=== PATIENT | male | born 1960 | race Caucasian/White ===

== ENCOUNTER → 2016-04-06 | Outpatient (CLI) | payer OTHER ==
[~2016-04-06] MED LIST: DOCU100C31 PO; DRGTP12 TOP; FENT75DI2 TD; GABA800T PO; MAGIC1 PO; MRLP17X PO; NRN600 PO; ONDA4TAB10 SL; OPTIRAY 320 IV PRN; OXYC-57 PO
--- NOTE | 2016-04-06 15:09 | DIAGNOSTIC IMAGING REPORT ---
CHEST CT WITH CONTRAST CT DOSE: 523.11 mGy.cm HISTORY: Lung carcinoma LUNG Cancer, r UPPER LOBE C7A.090 TECHNIQUE: Multiaxial CT images of the chest were performed following the intravenous administration of contrast. COMPARISON: 12/19/2015 FINDINGS: Interval decrease in point of a right apical cystic and or necrotic process. Slightly complex soft tissue component over the right pulmonary apex persists. An associated medial soft tissue component is perhaps slightly diminished. Bony destructive changes of the upper right hemithorax produces described are stable. No significant mediastinal or hilar adenopathy. Interval development of a 1 cm pleural-based nodule peripheral aspect lower right lung best seen on image 56. Possible sessile pleural-based nodule anterior aspect right base image 61 measuring 5 x 3 mm at. Left lung is considered clear. Apical fibrotic changes in the left are considered stable. Stable postoperative changes to low cervical spine. IMPRESSION: 1. Interval reduction in volume of a complex density over the right pulmonary apex. 2. Estimated volume is diminished by approximately 50%. 3. destructive changes of several osseous structures of the right pulmonary apical region, unchanged from the prior study. 4. Interval development of 2 pleural-based densities peripheral aspect right mid and lower lung regions the possibility of developing metastatic change. 5 hepatic hypodensities unchanged. Electronically signed by: Simon Best M.D. 04/06/2016 3:07 PM Dictated Date/Time: 04/06/2016 2:55 PM
--- NOTE | 2016-04-06 19:32 | DIAGNOSTIC IMAGING REPORT ---
CT OF THE ABDOMEN AND PELVIS WITH CONTRAST CLINICAL HISTORY: Right upper lobe lung cancer. COMPARISON STUDY: PET/CT September 16, 2015. TECHNIQUE: Following IV administration of 118 mL of Optiray-320, axial images of the abdomen and pelvis were obtained from the lung bases to the proximal femurs. Images were reviewed in the axial, sagittal, and coronal planes. IV contrast was administered without complication. FINDINGS: The chest will be reported separately. Note is made of a 1.8 cm hypodense lesion with possible peripheral enhancement within the right lower lateral hemithorax. There may be associated erosion of the adjacent rib. A 1.1 cm right lower lobe subpleural nodule is noted on image 36 of 446. Subcentimeter hepatic lesions are unchanged. These likely reflect cysts. No new hepatic lesions are present. The spleen, adrenal glands, kidneys and pancreas are unremarkable. There is no evidence for a bowel obstruction. There is mild bladder wall thickening. No abdominal or pelvic lymphadenopathy is present. There are no suspicious osseous lesions. IMPRESSION: 1. 1.8 cm hypodense lesion with peripheral enhancement within the right lower hemithorax with suspected associated minimal rib erosion. This finding, in addition to a few additional pleural nodules, are worrisome for pleural spread of malignancy. 2. No evidence of metastatic disease within the abdomen or pelvis. Electronically signed by: Noah Carrillo M.D. 04/06/2016 7:30 PM Dictated Date/Time: 04/06/2016 2:56 PM
== END | disposition home or self-care (01) ==
LOC: C.CTS 14:25
PROVIDERS: ATTEND Internal Medicine Hematology & Oncology
DX: C7A.090 Malignant carcinoid tumor of the bronchus and lung (principal); K76.9 Liver disease, unspecified

== ENCOUNTER → 2016-05-03 | Outpatient (CLI) | payer OTHER ==
[~2016-05-03] MED LIST changes: -OPTIRAY 320 IV PRN
--- NOTE | 2016-05-05 09:47 | DIAGNOSTIC IMAGING REPORT ---
PET/CT HISTORY: Lung cancer. TECHNIQUE: PET/CT was performed from the base of the skull through the pelvis following the intravenous administration of 14.6 mCi of F18-FDG. Non-contrast CT imaging was performed over the same range without breath-hold for attenuation correction of PET images and anatomic correlation, but not for primary interpretation as it is not of standard diagnostic quality. CT DOSE: COMPARISON: Chest abdomen and pelvis CT 04/06/2016. FINDINGS: HEAD AND NECK: There is no FDG-avid disease or significant lymphadenopathy in the imaged portions of the head and the neck. CHEST: There is been previous resection of the right posterior third and fourth ribs with an associated posterior mesh placement. Small amount of loculated fluid within the right lung apex. Low density soft tissue component of the right medial pulmonary apex persists. There is moderate degenerative uptake surrounding the right apical fluid collection and within the medial low-density soft tissue. This also extends to the right paraspinal soft tissues posterior to the T2 level. This area demonstrates an SUV max of 1.7. There are a total 4 of pleural-based nodules within the right lateral lung base with the largest adjacent to and resulting in partial destruction of the right lateral 10th rib. This measures 2.5 cm and demonstrates an SUV max of 4.6. These have increased in size. This dominant lesion previously measured 2.0 cm. Emphysema. Prior right upper lobectomy. ABDOMEN/PELVIS: Below the diaphragm, tracer is distributed physiologically in the gastrointestinal and genitourinary tracts. There is no significant lymphadenopathy and no FDG-avid disease. A few subcentimeter hypodense hepatic lesions remain unchanged. MUSCULOSKELETAL: No change in the partially destructive process involving the right side of the T3 and T4 vertebral bodies. IMPRESSION: 1. Increase in size within the FDG avid right lower pleural-based lesions consistent with metastatic disease. 2. No evidence change in the partially loculated right apical fluid collection with a small amount of medial low-density soft tissue. There is also no change in the destructive/postoperative change within the right apical osseous structures as described above. There is minimal to mild FDG uptake which is nonspecific. This could be due to the postoperative change. Residual malignancy cannot be excluded but is considered less likely given the low-level uptake. Continued follow-up is recommended. Electronically signed by: Elias Araujo M.D. 05/05/2016 9:45 AM Dictated Date/Time: 05/03/2016 12:28 PM
== END | disposition home or self-care (01) ==
LOC: C.PET 07:42
PROVIDERS: ATTEND Internal Medicine Hematology & Oncology
DX: C7A.090 Malignant carcinoid tumor of the bronchus and lung (principal)

== ENCOUNTER → 2016-08-17 | Outpatient (CLI) | payer OTHER ==
[~2016-08-17] MED LIST changes: -DRGTP12 TOP; -NRN600 PO; -ONDA4TAB10 SL; +OPTIRAY 320 IV PRN
--- NOTE | 2016-08-17 10:59 | DIAGNOSTIC IMAGING REPORT ---
CT SCAN OF THE ABDOMEN AND PELVIS WITH IV CONTRAST CLINICAL HISTORY: Lung cancer. COMPARISON STUDY: Abdominal CT dated 04/06/2016. PET/CT dated 05/03/2016. TECHNIQUE: Following the IV administration of 92 cc of Optiray 320, CT scan of the abdomen and pelvis is performed from the lung bases to the proximal femora. Images are reviewed in the axial, sagittal, and coronal planes. IV contrast was administered without complication. Automated dose control exposure was utilized. FINDINGS: Lung bases: There is mild left-sided cardiac enlargement. No pericardial effusion is seen. The coronary arteries are densely calcified. Advanced emphysema is present at the lung bases. The left lung base appears clear. A lesion at the right lung base has significantly increased in size from previous, measuring at least 3.7 cm with surrounding groundglass consolidative change. There is a trace right pleural effusion. A pleural-based metastatic lesion along the right heart border seen on image #33 has increased in size and now measures 2.8 cm. A pleural-based metastasis of the anterior right lung base seen on image #53 has also increased in size from previous now measuring 2.5 cm. Liver: The contrast-enhanced liver is normal in size, contour, and attenuation. A 7 mm hypodensity in the right lobe of the liver seen image #51 and a 7 mm hypodensity in the left lobe seen on image #70 are unchanged. These likely represent cysts but are too small for definitive characterization. There is no intrahepatic biliary ductal dilatation. The hepatic veins and portal veins are patent. Gallbladder: Unremarkable. Spleen: Normal in size and attenuation. Pancreas: Unremarkable. Adrenal glands: Unremarkable. Kidneys: The contrast enhanced kidneys are normal in size and without hydronephrosis. The kidneys enhance symmetrically. An 11 mm cyst is noted in the left lower pole. Abdominal vasculature: The abdominal aorta is normal in course and caliber noting moderate atherosclerotic calcification. Bowel: The small bowel and colon are normal in course and caliber. There is moderate colonic fecal retention. The appendix is not clearly visualized. Peritoneum: There is no intraperitoneal free air or abdominal ascites. Lymphadenopathy: None. Pelvic viscera: The bladder is decompressed and grossly unremarkable. The prostate gland is normal as visualized. Skeletal structures: There is a permeative lesion with pathologic fracture identified in the right posterior 10th rib. Soft tissues: The patient is cachectic. IMPRESSION: 1. Overall progression of metastatic disease at the lung bases as compared to the 05/03/2016 PET examination. 2. The right lower lobe pulmonary lesion is increased in size, as have 2 pleural-based metastatic lesions at the right lung base. 3. There is groundglass consolidation now seen surrounding the right lower lobe lesion. This may represent posttreatment change if there has been a history of radiation, infectious/inflammatory pneumonitis, or possibly lymphangitic spread of tumor. 3. A permeative lesion is again seen involving the right posterior 10th rib. There is now pathologic fracture. 4. Cardiomegaly and severe emphysema. 5. There is no evidence of metastatic disease in the abdomen pelvis. Electronically signed by: Russ Perkins M.D. 08/17/2016 10:58 AM Dictated Date/Time: 08/17/2016 10:46 AM
--- NOTE | 2016-08-17 11:00 | DIAGNOSTIC IMAGING REPORT ---
CT OF THE CHEST WITH IV CONTRAST CLINICAL HISTORY: Right upper lobe lung carcinoma COMPARISON STUDY: 04/06/2016 TECHNIQUE: Following the IV administration of 92 mL of Optiray-320, CT of the thorax was performed from the thoracic inlet to the lung bases. Images are reviewed in the axial, sagittal, and coronal planes. IV contrast was administered without complication. CT DOSE: 480.70 mGy.cm FINDINGS: Thyroid: Imaged portions of the thyroid gland are normal in appearance. Thoracic aorta: The thoracic aorta is normal in course and caliber, noting standard 3-vessel arch anatomy. No aneurysm or dissection is seen. Pulmonary vasculature: The pulmonary trunk is normal in caliber. There are no central filling defects identified to suggest pulmonary embolus. Note that this examination was not protocoled for the evaluation of pulmonary emboli. HEART: The heart is normal in size and configuration, without pericardial effusion. Lungs and pleural spaces: In the region of a previously identified right lower lobe subpleural nodule, there is an enlarging nodule currently measuring 3.6 cm in diameter. There is surrounding groundglass opacities measuring 7 cm. There is a new 15 mm cavitary lesion within the left lower lobe. There is a new 12 mm cavitary lesion within the right lower lobe. There is an enlarging 19 mm right anterior chest wall mass. There is a 5.5 cm loculated fluid collection within the right apex. There are right lower lobe paramediastinal consolidative changes, possibly secondary to radiation therapy. Mediastinum: There is an enlarging soft tissue nodule within the right pericardial region measuring 3 cm. This is consistent with a progressive metastatic deposit. There is diffuse esophageal wall thickening. [place]: There is no pathologic hilar adenopathy by size.. Axilla: Clear. Upper abdomen: Partially visualized upper abdominal viscera is within normal limits. Skeletal structures: There are postsurgical/destructive lesions involving the right third and fourth ribs. There are persistent destructive lesions involving the second and third thoracic vertebral bodies. IMPRESSION: 1. Progressive metastatic disease with enlarging necrotic 3 cm right paracardial lymph node. There is an enlarging 19 mm right chest wall nodule. There is an enlarging 3.6 cm peripheral right lung nodule with surrounding groundglass attenuation.2 there are new cavitary lower lobe lesions. Electronically signed by: Jan Ellsworth M.D. 08/17/2016 10:59 AM Dictated Date/Time: 08/17/2016 10:47 AM
== END | disposition home or self-care (01) ==
LOC: C.CTS 10:00
PROVIDERS: ATTEND Nurse Practitioner Family
DX: C7A.090 Malignant carcinoid tumor of the bronchus and lung (principal); R91.8 Other nonspecific abnormal finding of lung field; I51.7 Cardiomegaly; J43.9 Emphysema, unspecified

== ENCOUNTER → 2016-08-18 | Outpatient (CLI) | payer OTHER ==
[~2016-08-18] MED LIST changes: -OPTIRAY 320 IV PRN
== END | disposition home or self-care (01) ==
LOC: C.LABSPEC 14:02
PROVIDERS: ATTEND Internal Medicine Hematology & Oncology
DX: C34.90 Malignant neoplasm of unspecified part of unspecified bronchus or lung (principal)

== ENCOUNTER → 2016-12-14 | Outpatient (CLI) | payer OTHER ==
[~2016-12-14] MED LIST changes: +OPTIRAY 320 IV PRN
--- NOTE | 2016-12-14 11:17 | DIAGNOSTIC IMAGING REPORT ---
ABD/PELVIS IV AND ORAL CONT CLINICAL HISTORY: 56 years-old Male presenting with lung cancer, right upper lobe. TECHNIQUE: Multidetector CT of the abdomen and pelvis was performed after the administration of intravenous contrast. IV contrast: 93 mL of Optiray 320. A dose lowering technique was used consistent with the principles of ALARA (as low as reasonably achievable). COMPARISON: 08/17/2016. CT DOSE (mGy.cm): The estimated cumulative dose is 500.29 mGy.cm. FINDINGS: Rn Mobile topogram: Unremarkable. Lung bases: Overall decrease in size and surrounding groundglass opacity at the site of the peripheral/subpleural right lower lobe mass. This now measures 2.8 cm in maximal axial dimension, previously 3.7 cm. A satellite solid nodule amidst groundglass opacity now measures 5 mm, previously 10 mm (series 6 image 36). Interval decrease in size of the 2 cavitary lesions one in the right lower lobe and one in the left lower lobe. These now measure 5 mm and 11 mm, respectively, previously 13 mm and 16 mm. The additional solid 3 mm pulmonary nodule at the right lung base (series 6 image 46) is unchanged from prior and better appreciated now as nearby groundglass opacity has resolved. No new pulmonary nodule. Normal heart size. No pericardial or pleural effusion. Centrally necrotic mass along the right heart border now measures 2 cm, previously 2.7 cm. The pleural-based mass in the anterior right lung now measures 0.9 cm in thickness, previously 1.3 cm. Liver: Few scattered well-defined hypodensities likely hepatic cysts or hamartomas, the largest measuring 7 mm at the right hepatic dome. Normal liver morphology. Patent hepatic vasculature. Biliary: No intrahepatic or extrahepatic biliary ductal dilatation. Normal gallbladder. Pancreas: Pancreatic ductal prominence similar to prior exam. No gross evidence of an obstructing mass or stone. Spleen: Normal. Adrenal glands: Normal. Kidneys and ureters: Punctate nonobstructing renal calculus may be present at the left upper pole. Simple cysts noted at the left lower pole. No hydronephrosis. Ureters poorly visualized. Bladder: Normal. Pelvic organs: Prostate enlargement likely secondary to benign prostatic hyperplasia. Bowel: Mild stool burden. Oral contrast has transited to the right colon. No bowel obstruction. Normal appendix. Peritoneal cavity: Paucity of intra-abdominal fat. No gross free intraperitoneal fluid or gas. Vasculature: Atherosclerosis of the normal caliber abdominal aorta. IVC patent. Lymph nodes: No enlarged lymph nodes in the abdomen or pelvis. Abdominal wall: Posterior subcutaneous fat possibly indicating cachexia. Musculoskeletal: Destructive osseous lesion in the right posterior 10th rib again noted, more sclerotic than on prior exam. No new osseous lesion. IMPRESSION: 1. Interval decrease in size of the right lower lobe mass with decrease in size of additional sites of pulmonary disease. 2. Decreased surrounding groundglass opacity could represent decreased inflammatory or infectious changes or evolving post radiation pneumonitis. 3. Decreased size of a centrally necrotic mass along the right heart border, possibly necrotic lymph node or pleural-based metastatic lesion. Decrease in size of the additional right pleural-based lesion. 4. Evolution of the right posterior 10th rib osseous lesion, which is now more sclerotic. This could suggest a treatment response. 5. Cachexia. 6. No evidence of metastatic disease in abdomen or pelvis. Electronically signed by: Alvaro Hill M.D. 12/14/2016 11:16 AM Dictated Date/Time: 12/14/2016 11:03 AM
--- NOTE | 2016-12-15 06:55 | DIAGNOSTIC IMAGING REPORT ---
CT OF THE CHEST WITH IV CONTRAST CLINICAL HISTORY: Lung cancer. COMPARISON STUDY: Chest CT August 17, 2016 and PET/CT May 03, 2016. TECHNIQUE: Following IV administration of 93 mL of Optiray-320, helical axial images of the chest were obtained. Sagittal and coronal reconstructions were viewed as well as maximal intensity projections on an independent 3-D workstation. A dose lowering technique was utilized adhering to the principles of ALARA. FINDINGS: Postsurgical findings consistent with right upper lobe resection as well as resection of portions of the posterior right third and fourth ribs are noted. The postoperative appearance is unchanged since CT of August 17, 2016, including a right apical cavity that measures 5 x 4 cm. Associated irregularity of the adjacent ribs and vertebra is unchanged. Adjacent airspace opacity within the right lung is likely post therapeutic. A right pericardial/cardiophrenic angle nodule shown image 259 of 356 has decreased in size since prior exam. This nodule now measures 2.1 x 1.8 cm. It previously measured 3 x 2.6 cm. A right anterior pleural mass has decreased in size since prior exam. This is difficult to measure on this study given decrease in size. This is shown on image 285. An irregular 2.6 x 1.2 cm subpleural right lower lobe nodule with adjacent ground glass opacity is noted. The nodule has slightly decreased in size. Associated groundglass opacity has decreased. There are smaller adjacent nodules. Interlobular septal thickening within the right lower lobe is noted. A pathological right 10th rib fractures noted. A few hepatic cysts are noted. IMPRESSION: 1. Findings consistent with a partial treatment response. Moderate decrease in size of the right pericardial/cardiophrenic angle lesion and an additional right pleural nodule since prior exam. 2. Persistent 2.6 x 1.2 cm subpleural right lower lobe opacity which has mildly decreased in size. Associated groundglass opacity is diminished. Adjacent nodules with interlobular septal thickening raises the possibility of lymphangitic spread of tumor. 3. Stable postoperative findings consistent with right upper lobe resection and resection of portions of the right third and fourth ribs with an associated fluid-filled cavity. Electronically signed by: Noah Carrillo M.D. 12/15/2016 6:54 AM Dictated Date/Time: 12/14/2016 11:04 AM
== END | disposition home or self-care (01) ==
LOC: C.CTS 10:34
PROVIDERS: ATTEND Nurse Practitioner Family
DX: C34.11 Malignant neoplasm of upper lobe, right bronchus or lung (principal); R91.8 Other nonspecific abnormal finding of lung field; Z90.2 Acquired absence of lung [part of]

== ENCOUNTER → 2017-06-01 | Outpatient (CLI) | payer OTHER ==
--- NOTE | 2017-06-01 16:10 | DIAGNOSTIC IMAGING REPORT ---
ABD/PELVIS IV AND ORAL CONT CLINICAL HISTORY: 57 years-old Male presenting with LUNG CA. TECHNIQUE: Multidetector CT of the abdomen and pelvis was performed after the administration of oral and intravenous contrast. IV contrast: 50 mL of Optiray 320. A dose lowering technique was used consistent with the principles of ALARA (as low as reasonably achievable). COMPARISON: 12/14/2016. CT DOSE (mGy.cm): The estimated cumulative dose is 1010.54. FINDINGS: Suboptimal opacification of the vasculature and enhancement of the hollow and solid viscera secondary to suboptimal injection of contrast. This limits image quality and diagnostic sensitivity for metastatic disease in abdomen or pelvis. [employer] Att[employer] topogram: Hyperinflation of the lungs with postsurgical or posttreatment changes of the right hemithorax.. Cachexia. Lung bases: Continued decrease in size of the pleural-based spiculated solid 1.4 cm nodule in the lateral basal right lower lobe, previously 2.8 cm (series 13 image 31). Decreased surrounding groundglass opacity. The previously noted solid pulmonary nodule adjacent to the dominant nodule has decreased in size now measuring 3 mm (series 13 image 41), previously 5 mm. Stable size of the 2 mm solid nodule in the posterior basal right lower lobe (series 13 image 55). Decreased prominence of the now ill-defined nodularity more centrally in the posterior basal right lower lobe (series 6 image 49). Decreased prominence of the plaque-like pleural-based abnormality along the anterolateral right middle lobe (series 13 image 62), which is now not usually measurable. Normal heart size. Coronary artery calcification. Decreased size of the hypodense nodule adjacent to the right heart border (series 13 image 44). No pericardial or pleural effusion. Liver: Normal morphology. Well-defined hypodense lesion in the liver compatible with hepatic cyst or hamartoma. No gross evidence of a new lesion. Biliary: No intrahepatic or extrahepatic biliary ductal dilatation. Normal gallbladder. Pancreas: Normal. Spleen: Normal. Adrenal glands: Normal. Kidneys and ureters: Normal. No hydronephrosis. Bladder: Incompletely evaluated secondary to underdistention. Pelvic organs: Prostate enlargement likely secondary to benign prostatic hyperplasia. Bowel: Mild stool burden most pronounced in the right colon and cecum. No bowel obstruction. Peritoneal cavity: No free fluid or intraperitoneal gas. Lymph nodes: No gross evidence of lymphadenopathy Vasculature: Atherosclerosis of the normal caliber abdominal aorta. Abdominal wall: Cachexia. Musculoskeletal: Sclerotic lesion again noted in the lateral right 10th rib. IMPRESSION: 1. No evidence of intra-abdominal metastatic disease allowing for suboptimal contrast opacification of the vasculature and suboptimal enhancement of the hollow and solid viscera. This limits diagnostic CT to be of the exam. 2. Decreased size of the pleural-based right lower lobe nodule and additional sites of disease at the right lung base. Please see separately dictated CT of the chest. Electronically signed by: Alvaro Hill M.D. 06/01/2017 4:09 PM Dictated Date/Time: 06/01/2017 4:01 PM
--- NOTE | 2017-06-01 16:22 | DIAGNOSTIC IMAGING REPORT ---
CHEST CT WITH CONTRAST CT DOSE: 1010.54 mGy.cm HISTORY: Follow-up study in a patient with history of lung cancer. Subsequent treatment strategy. LUNG CA TECHNIQUE: Multiaxial CT images of the chest were performed following the intravenous administration of contrast. A dose lowering technique was utilized adhering to the principles of ALARA. COMPARISON: Chest CT 04/06/2016 and 12/14/2016, PET CT 05/03/2016, CT abdomen and pelvis of same day. FINDINGS: No dominant thyroid nodule identified. No definite pathologic adenopathy about the chest. Heart is normal in size with trace pericardial effusion. Coronary arterial disease is noted. No aortic aneurysm or dissection. Imaged great vessels appear to be patent. Moderate atherosclerosis of the aorta. The opacified pulmonary arterial tree appears unremarkable. Postoperative changes of the right hilum and right lung apex redemonstrated with findings suggesting prior right upper lobectomy. Parenchymal cystic changes with multifocal consolidative and reticular opacities of the right lung apex have progressed from comparison. Moderate upper lobe predominant centrilobular and paraseptal emphysematous changes redemonstrated. Loculated fluid at the right lung apex appears generally unchanged measuring up to 6.1 x 3.8 cm. Minimal peripheral enhancement of the loculated fluid is noted. Spiculated pleural-based nodule of the lateral basal segment right lower lobe is seen on image 261 of series 4 measuring 1.5 cm in length, previously measuring 2.[address] 12/14/2016. The previously noted pleural-based nodule within the more inferior portion of the lateral basal segment right lower lobe is not as clearly seen on today's study and may correlate with area of minimal pleural nodularity as seen on image 291 series 4. 4 mm spiculated solid nodule of the left lower lobe as seen on image 268 of series 4, unchanged. 10 x 9 mm nodule abutting the right pericardial/cardiophrenic angle region has decreased in size, previously 2.1 x 1.8 cm nicely seen on image 265 of series 4. Mild intralobular septal thickening of the right lung base is unchanged. Mild layering secretions are seen within the tracheobronchial tree, notably within the distal trachea. The left lung is clear. 5 mm low attenuating lesion of the hepatic dome is unchanged ingesting probable hepatic cyst. No acute abnormality of the imaged upper abdomen. Bilateral nonobstructing nephrolithiasis noted. Postoperative changes again noted compatible with prior resection of the right third and fourth ribs. Remote pathologic right 10th rib fracture again noted. Fusion hardware of the lower cervical spine. No new suspicious lytic or blastic lesions identified. Ill-defined mixed lytic and sclerotic lesions are again noted involving the T2 and T3 vertebral bodies, unchanged. IMPRESSION: 1. Findings compatible with positive response to treatment with decreased size of the pleural-based spiculated nodule of the lateral basal segment right lower lobe as well as decreased size of the right pericardial lesion from prior exam dated 12/14/2016. 2. No new or enlarging pulmonary nodules or adenopathy identified. 3. Progressively worsened consolidation and reticular opacities of the right lung apex suggest posttreatment changes. 4. Postoperative changes from prior right upper lobectomy with resection of the right third and fourth ribs. Fluid-filled cavity adjacent to the right lung apex is unchanged. 5. Unchanged destructive appearing bone lesions within the T3 and T4 vertebral bodies. Electronically signed by: Norman Butler M.D. 06/01/2017 4:21 PM Dictated Date/Time: 06/01/2017 4:03 PM
== END | disposition home or self-care (01) ==
LOC: C.CTS 15:19
PROVIDERS: ATTEND Nurse Practitioner Family
DX: C7A.090 Malignant carcinoid tumor of the bronchus and lung (principal); N40.0 Benign prostatic hyperplasia without lower urinary tract symptoms

== ENCOUNTER → 2017-07-04 | Outpatient (CLI) | payer OTHER ==
[~2017-07-04] MED LIST changes: -OPTIRAY 320 IV PRN
--- NOTE | 2017-07-04 15:04 | DIAGNOSTIC IMAGING REPORT ---
CHEST 2 VIEWS ROUTINE CLINICAL HISTORY: 57 years-old Male presenting with LUNG CANCER, R UPPER LOBE C7A.090. TECHNIQUE: PA and lateral views of the chest were obtained. COMPARISON: Chest CT from 06/01/2017 and chest x-ray from 12/17/2015. FINDINGS: Atherosclerosis of the aortic arch. Cardiac silhouette normal in size. Nonvisualization of the noted nodule at the periphery of the posterior basal right lower lobe. Lungs are hyperinflated. The patient is status post right upper lobectomy. Chronic loculated right apical pleural effusion. No pneumothorax. Suture line noted at the right hilum. Chronic dense solid and hazy reticular opacities in the right upper lung with architectural distortion and elevation of the right hilum. Left lung and pleural space clear. Osseous structures normal. Upper abdomen normal. IMPRESSION: 1. Postsurgical changes of right upper lobectomy with chronic cicatrizing atelectasis of the right middle lobe and superior segment of the right lower lobe. 2. Chronic loculated right apical pleural effusion. 3. No acute cardiopulmonary disease. Electronically signed by: Alvaro Hill M.D. 07/04/2017 3:02 PM Dictated Date/Time: 07/04/2017 2:59 PM
== END | disposition home or self-care (01) ==
LOC: C.RAD 14:36
PROVIDERS: ATTEND Internal Medicine Hematology & Oncology
DX: C7A.090 Malignant carcinoid tumor of the bronchus and lung (principal); J90 Pleural effusion, not elsewhere classified

== ENCOUNTER → 2017-08-20 | Outpatient (CLI) | payer OTHER ==
--- NOTE | 2017-08-20 14:39 | DIAGNOSTIC IMAGING REPORT ---
CHEST 2 VIEWS ROUTINE CLINICAL HISTORY: 57 years-old Male presenting with C7A.090, history of lung cancer. TECHNIQUE: PA and lateral views of the chest were obtained. COMPARISON: 07/04/[address] from 06/01/2017. FINDINGS: A surgical clip projects over the right upper lung. Atherosclerosis of the aortic arch. Cardiac silhouette normal in size. Redemonstration of postsurgical and posttreatment changes of the right apex with hazy and reticular opacities in the right upper lung, unchanged. Loculated right apical pleural fluid unchanged. Lungs are otherwise hyperinflated. No new focal opacity. No large pneumothorax. Osseous structures normal. Upper abdomen normal. IMPRESSION: 1. Chronic changes of the right apex due to postsurgical changes of right upper lobectomy and chronic loculated right apical effusion. No evidence of acute cardiopulmonary disease. Electronically signed by: Alvaro Hill M.D. 08/20/2017 2:38 PM Dictated Date/Time: 08/20/2017 2:35 PM
== END | disposition home or self-care (01) ==
LOC: C.RAD 13:59
PROVIDERS: ATTEND Nurse Practitioner Family
DX: C7A.090 Malignant carcinoid tumor of the bronchus and lung (principal)

== ENCOUNTER 2017-11-02 15:23 | Emergency (ER) | payer OTHER ==
[~2017-11-02] VITALS: Ht 175.3 cm; Wt 55.8 kg
[2017-11-02 15:28] VITALS: TEMP 36.8; Ht 175.3 cm; Wt 55.8 kg
[2017-11-02] MEDS ORDERED: SODIUM CHLORIDE 0.9% 1000ML 1,000 ML IV ONE (15:55)
[2017-11-02] MEDS ORDERED: SODIUM CHLORIDE 0.9% 1000ML 1,000 ML IV STA ×2 (15:55→17:30)
[2017-11-02 16:09] LABS: BASO % 0.2 %; BASO ABS # 0.01 K/uL (0-0.2); EOS % 0.2 %; EOS ABS # 0.01 K/uL (0-0.5); IG# 0.01 K/uL (0.00-0.02); LYMPH % 10.2 %; LYMPH ABS # 0.52 K/uL (1.2-3.4); MEAN CELL VOLUME 90.9 fL (80-100); MEAN CORPUSCULAR HEMOGLOBIN 31.7 pg (25-34); MEAN CORPUSCULAR HGB CONC 34.9 g/dl (32-36); MONO ABS # 0.46 K/uL (0.11-0.59); NEUT % 80.2 %; NEUT ABS # 4.08 K/uL (1.4-6.5); PLATELET COUNT 222 K/uL (130-400); RED CELL DISTRIBUTION WIDTH CV 14.1 % (11.5-14.5); RED CELL DISTRIBUTION WIDTH SD 47.3 fL (36.4-46.3); WHITE BLOOD COUNT 5.09 K/uL (4.8-10.8)
--- NOTE | 2017-11-02 16:20 | EMERGENCY ROOM VISIT NOTE ---
History First contact with patient: 15:37 Chief Complaint: OTHER COMPLAINT Stated Complaint: COLD SWEATS, BLURRED VISION History of Present Illness The patient is a 57 year old male who presents to the Emergency Room with complaints of feeling weak and sweaty. He woke up at 11 PM and had cold sweats that have been off and on since last night he feels like he has been drenching is closed he has had no measurable fever. He denies any pain or fall or trauma. No cough or shortness of breath or chest pain. He took his fentanyl patch off this morning as he was concerned he could be causing that. He does have a history of lung cancer and is on Opthevo for this. He denies dysuria hematuria no abdominal pain or headache or her neck pain or stiffness he feels a little nauseated. He said his blood vision was blurry earlier but got better when he put his glasses on. He does not have an A-Port or any permanent vascular access. Source of History: patient, EMS Review of Systems As above. All other systems reviewed were negative unless otherwise stated in history. At least 10 were reviewed Past Medical/Surgical History Medical Problems: (1) Herniated nucleus pulposus, lumbar (2) Lung cancer (3) Mass of right lung (4) Mediastinal mass (5) Renal calculus (6) Tobacco use disorder Surgical Problems: (1) S/P cervical spinal fusion (2) S/P lobectomy of lung Old medical records were reviewed. Nurse's notes were reviewed and I agree with. Social History Smoking Status: Former Smoker Drug Use: none Marital Status: single Occupation Status: disabled Current/Historical Medications Scheduled Fluconazole (Diflucan), 100 MG PO DAILY Gabapentin (Neurontin), 800 MG PO Q8 Ketoconazole (Ketoconazole), 1 APPLN TOP DAILY Scheduled PRN Oxycodone Hcl (Oxycodone Hcl), 10 MG PO Q4-6H PRN for Pain Physical Exam Vital Signs Date Time Temp Pulse Resp B/P (MAP) Pulse Ox O2 Delivery O2 Flow Rate FiO2 11/02/17 18:49 84 20 136/72 98 11/02/17 17:20 76 16 134/76 98 Room Air 11/02/17 15:28 36.8 89 16 129/72 98 Room Air Physical Exam General:Chronically ill-appearing middle-aged male who in no acute distress, breathing comfortably on room air. Normal speech HEENT: Normal cephalic atraumatic. Pupils are equal round and reactive to light. Sclerae anicteric extraocular movements are intact. Oropharynx is pink with moist mucous membranes. No swelling of the mouth lips or tongue. Neck: Supple with a midline trachea. No meningeal signs or stiffness, no JVD or bruits. No Stridor. No meningeal signs or stiffness Chest: Clear to auscultation bilaterally. No wheezes or rhonchi. No increased work of breathing. Heart: Regular rate and rhythm without murmurs or gallops. Abdomen: Soft nontender, nondistended without rebound guarding or rigidity. Extremities: No cyanosis clubbing or edema. No calf tenderness or assymetry Spine/Back. Non tender to palpation. No CVA tenderness Skin: Good turgor without rashes. Neurologic exam: Cranial nerves two through 12 are intact. Motor and sensation are intact and symmetrical throughout. Medical Decision & Procedures Laboratory Results 11/02/17 15:30 Red Blood Count 4.73, Mean Corpuscular Volume 90.9, Mean Corpuscular Hemoglobin 31.7, Mean Corpuscular Hemoglobin Concent 34.9, Mean Platelet Volume 10.0, Neutrophils (%) (Auto) 80.2, Lymphocytes (%) (Auto) 10.2, Monocytes (%) (Auto) 9.0, Eosinophils (%) (Auto) 0.2, Basophils (%) (Auto) 0.2, Neutrophils # (Auto) 4.08, Lymphocytes # (Auto) 0.52, Monocytes # (Auto) 0.46, Eosinophils # (Auto) 0.01, Basophils # (Auto) 0.01 11/02/17 16:08 Test 11/02/17 15:30 11/02/17 16:08 11/02/17 16:21 11/02/17 17:11 White Blood Count 5.09 K/uL (4.8-10.8) Red Blood Count 4.73 M/uL (4.7-6.1) Hemoglobin 15.0 g/dL (14.0-18.0) Hematocrit 43.0 % (42-52) Mean Corpuscular Volume 90.9 fL (80-100) Mean Corpuscular Hemoglobin 31.7 pg (25-34) Mean Corpuscular Hemoglobin Concent 34.9 g/dl (32-36) Platelet Count 222 K/uL (130-400) Mean Platelet Volume 10.0 fL (7.4-10.4) Neutrophils (%) (Auto) 80.2 % Lymphocytes (%) (Auto) 10.2 % Monocytes (%) (Auto) 9.0 % Eosinophils (%) (Auto) 0.2 % Basophils (%) (Auto) 0.2 % Neutrophils # (Auto) 4.08 K/uL (1.4-6.5) Lymphocytes # (Auto) 0.52 K/uL (1.2-3.4) Monocytes # (Auto) 0.46 K/uL (0.11-0.59) Eosinophils # (Auto) 0.01 K/uL (0-0.5) Basophils # (Auto) 0.01 K/uL (0-0.2) RDW Standard Deviation 47.3 fL (36.4-46.3) RDW Coefficient of Variation 14.1 % (11.5-14.5) Immature Granulocyte % (Auto) 0.2 % Immature Granulocyte # (Auto) 0.01 K/uL (0.00-0.02) Total Bilirubin 0.6 mg/dl (0.2-1) Direct Bilirubin 0.1 mg/dl (0-0.2) Aspartate Amino Transf (AST/SGOT) 15 U/L (15-37) Alanine Aminotransferase (ALT/SGPT) 19 U/L (12-78) Alkaline Phosphatase 103 U/L (45-117) Total Protein 7.5 gm/dl (6.4-8.2) Albumin 4.0 gm/dl (3.4-5.0) Lipase 77 U/L (73-393) Thyroid Stimulating Hormone (TSH) 0.483 uIu/ml (0.300-4.500) Anion Gap 7.0 mmol/L (3-11) Est Creatinine Clear Calc Drug Dose 91.9 ml/min Estimated GFR () 121.4 Estimated GFR (Non- 104.8 BUN/Creatinine Ratio 23.5 (10-20) Calcium Level 9.7 mg/dl (8.5-10.1) Bedside Lactic Acid Venous 1.06 mmol/L (0.90-1.70) Bedside Troponin I < 0.030 ng/ml (0-0.045) Urine Color YELLOW Urine Appearance TURBID (CLEAR) Urine pH >= 9.0 (4.5-7.5) Urine Specific Jackson 1.022 (1.000-1.030) Urine Protein NEG (NEG) Urine Glucose (UA) NEG (NEG) Urine Ketones 2+ (NEG) Urine Occult Blood NEG (NEG) Urine Nitrite NEG (NEG) Urine Bilirubin NEG (NEG) Urine Urobilinogen NEG (NEG) Urine Leukocyte Esterase NEG (NEG) Urine WBC (Auto) 1-5 /hpf (0-5) Urine RBC (Auto) 0-4 /hpf (0-4) Urine Hyaline Casts (Auto) 1-5 /lpf (0-5) Urine Epithelial Cells (Auto) 5-10 /lpf (0-5) Urine Bacteria (Auto) NEG (NEG) Medications Administered Medications (Trade) Dose Ordered Sig/Gordon Route Start Time Stop Time Status Last Admin Dose Admin Sodium Chloride 1,000 ml @ 999 mls/hr Q1H1M STAT IV 11/02/17 15:55 11/02/17 16:55 DC 11/02/17 15:55 999 MLS/HR Sodium Chloride 1,000 ml @ 150 mls/hr Q6H40M ONCE IV 11/02/17 15:55 11/02/17 21:04 DC 11/02/17 15:55 150 MLS/HR Ondansetron HCl (Zofran Inj) 4 mg NOW STAT IV 11/02/17 17:32 11/02/17 17:33 DC 11/02/17 17:32 4 MG Medical Decision Differential diagnosis includes: Sepsis, cardiac disease, electrolyte or metabolic abnormalities, cancer related complication, medication side effects This patient comes in as described above he is having sweats. His vital signs are stable. he is afebrile here. he does have a history of cancer and is on chemo. It could be related to those. IV access established nand he was hydrated a 1L liter IV normal saline bolus and multiple blood testing was obtained including lactic acid. Lactic acid was not significantly elevated. I did a CAT scan of his head as well as chest x-ray and also urinalysis and culture. He was reassessed frequently. His workup was unremarkable. He is not neutropenic. He refused a CAT scan of his head. I reviewed recent CAT scans of the chest abdomen and pelvis that shows stable nonacute findings. His chest x-ray today was unremarkable. EKG does not suggest acute coronary syndrome or arrhythmia. He has no elevation of troponin. He has no significant electrolyte or metabolic abnormalities. He has nothing to suggest a UTI. He is complaining that he feels hungry. He felt significant better after receiving fluids and hydration and says he thinks he was just dehydrated. He adamantly desires to go home, I think this is reasonable. He should rest and drink plenty of fluids. return if: worsening of symptoms, fever or chills, any new problems or concerns and follow-up with his doctor Sunday for recheck. Medication Reconcilliation Current Medication List: was personally reviewed by me Impression Primary Impression: Weakness Additional Impression: Dehydration Departure Information Referrals No Doctor, Assigned (PCP) Patient Instructions My [facility] Health Problem Qualifiers
--- NOTE | 2017-11-02 16:24 | DIAGNOSTIC IMAGING REPORT ---
CHEST ONE VIEW PORTABLE CLINICAL HISTORY: CHEST PAIN dyspnea COMPARISON STUDY: 08/20/2017 FINDINGS: Unchanging post procedural unremarkable findings right pulmonary apex. Unchanging lateral displacement right superior mediastinum. Lungs otherwise are clear. There are no new or interval findings. IMPRESSION: Stable unchanged right apical findings. No acute process. The above report was generated using voice recognition software. It may contain grammatical, syntax or spelling errors. Electronically signed by: Simon Best M.D. 11/02/2017 4:22 PM Dictated Date/Time: 11/02/2017 4:21 PM
[2017-11-02 16:29] LABS: TOTAL PROTEIN 7.5 gm/dl (6.4-8.2)
[2017-11-02 16:45] LABS: CALCIUM 9.7 mg/dl (8.5-10.1); CREATININE 0.7 mg/dl (0.60-1.40); POTASSIUM 3.8 mmol/L (3.5-5.1)
[2017-11-02] MEDS ORDERED: ONDANSETRON INJ 2 MG/ML 2 ML VIAL IV STA (17:32)
[2017-11-02] MEDS ORDERED: FLUC100T4 PO (18:02)
[2017-11-02] MEDS ORDERED: OXYC-164 PO (18:02)
[2017-11-02] MEDS ORDERED: GABA800T PO (18:02)
[2017-11-02] MEDS ORDERED: NZRCR TOP (18:02)
[2017-11-02 18:49] VITALS: BP 136/72; PULSE 84; O2SAT 98
== END 2017-11-02 18:51 | disposition home or self-care (01) ==
LOC: EDBD 15:23 → C.EDC 15:24
DX: R53.1 Weakness (principal); E86.0 Dehydration; Z87.891 Personal history of nicotine dependence